=== PATIENT | male | born 1965 ===

== ENCOUNTER 2018-02-02 08:58 | Outpatient (CLI) | payer OTHER ==
[~2018-02-02 08:58] MED LIST: CIPRO500 MG PO; FLAGYL500MG PO; ULTRACET PO
== END 2018-02-02 08:59 | disposition home or self-care (01) ==
LOC: LAB 08:58
DX: I11.9 Hypertensive heart disease without heart failure (principal); E11.9 Type 2 diabetes mellitus without complications; E78.2 Mixed hyperlipidemia; E03.9 Hypothyroidism, unspecified; E55.9 Vitamin D deficiency, unspecified; E56.8 Deficiency of other vitamins; C21.0 Malignant neoplasm of anus, unspecified; R76.11 Nonspecific reaction to tuberculin skin test without active tuberculosis; Z02.79 Encounter for issue of other medical certificate

== ENCOUNTER 2018-12-30 09:14 | Outpatient (CLI) | payer OTHER | END 2018-12-30 09:20 | disposition home or self-care (01) | LOC: TOM 09:14 | DX: K59.09 Other constipation (principal); K57.32 Diverticulitis of large intestine without perforation or abscess without bleeding ==

== ENCOUNTER 2019-11-15 09:15 | Outpatient (CLI) | payer OTHER | END 2019-11-15 15:28 | disposition home or self-care (01) | LOC: LAB 09:15 | DX: I11.9 Hypertensive heart disease without heart failure (principal); E11.9 Type 2 diabetes mellitus without complications; E78.2 Mixed hyperlipidemia; E55.9 Vitamin D deficiency, unspecified; E56.8 Deficiency of other vitamins; N39.0 Urinary tract infection, site not specified; E24.2 Drug-induced Cushing's syndrome; E24.0 Pituitary-dependent Cushing's disease; C61 Malignant neoplasm of prostate; E34.8 Other specified endocrine disorders; K76.89 Other specified diseases of liver; A15.8 Other respiratory tuberculosis; C20 Malignant neoplasm of rectum; C19 Malignant neoplasm of rectosigmoid junction ==

== ENCOUNTER → 2020-12-24 | Outpatient (CLI) | payer OTHER | END | disposition home or self-care (01) | LOC: EDBD 15:19 → RAD 15:19 | PROVIDERS: ATTEND Internal Medicine Geriatric Medicine | DX: I11.9 Hypertensive heart disease without heart failure (principal) ==

== ENCOUNTER → 2020-12-25 09:18 | Outpatient (CLI) | payer OTHER | END | disposition home or self-care (01) | LOC: LAB 09:18 → EDBD 09:18 | PROVIDERS: ATTEND Internal Medicine Geriatric Medicine | DX: E03.8 Other specified hypothyroidism (principal); I11.9 Hypertensive heart disease without heart failure; E11.9 Type 2 diabetes mellitus without complications; E78.2 Mixed hyperlipidemia; E55.9 Vitamin D deficiency, unspecified; E56.8 Deficiency of other vitamins; N39.0 Urinary tract infection, site not specified; F52.21 Male erectile disorder ==

== ENCOUNTER → 2021-04-11 12:14 | Outpatient (CLI) | payer OTHER | END | disposition home or self-care (01) | LOC: LAB 12:14 | PROVIDERS: ATTEND Internal Medicine Geriatric Medicine | DX: Z20.828 Contact with and (suspected) exposure to other viral communicable diseases (principal) ==

== ENCOUNTER → 2021-07-22 | Outpatient (CLI) | payer OTHER | END | disposition home or self-care (01) | LOC: PPH VACUNA 08:00 | PROVIDERS: ATTEND Emergency Medicine Pediatric Emergency Medicine | DX: Z23 Encounter for immunization (principal) ==

== ENCOUNTER 2021-10-03 15:57 | Outpatient (CLI) | payer OTHER | END 2021-10-03 15:59 | disposition home or self-care (01) | LOC: LAB 15:57 | DX: Z03.818 Encounter for observation for suspected exposure to other biological agents ruled out (principal); Z20.828 Contact with and (suspected) exposure to other viral communicable diseases ==

== ENCOUNTER 2021-10-04 10:10 | Outpatient (CLI) | payer OTHER | END 2021-10-04 10:15 | disposition home or self-care (01) | LOC: LAB 10:10 | PROVIDERS: ATTEND Internal Medicine Geriatric Medicine | DX: E03.8 Other specified hypothyroidism (principal); I11.9 Hypertensive heart disease without heart failure; E11.9 Type 2 diabetes mellitus without complications; C61 Malignant neoplasm of prostate; R97.20 Elevated prostate specific antigen [PSA] ==

== ENCOUNTER 2022-01-12 07:54 | Outpatient (CLI) | payer OTHER | END 2022-01-12 09:15 | disposition home or self-care (01) | LOC: LAB 07:54 | PROVIDERS: ATTEND Internal Medicine Hematology & Oncology | DX: D50.8 Other iron deficiency anemias (principal); I10 Essential (primary) hypertension; N39.0 Urinary tract infection, site not specified; E03.8 Other specified hypothyroidism; E11.9 Type 2 diabetes mellitus without complications; E78.2 Mixed hyperlipidemia; E55.9 Vitamin D deficiency, unspecified; A15.9 Respiratory tuberculosis unspecified; A64 Unspecified sexually transmitted disease; A53.9 Syphilis, unspecified; M32.9 Systemic lupus erythematosus, unspecified ==

== ENCOUNTER 2022-01-13 09:53 | Outpatient (CLI) | payer OTHER | END 2022-01-13 09:55 | disposition home or self-care (01) | LOC: RAD 09:53 | PROVIDERS: ATTEND Internal Medicine Hematology & Oncology | DX: Z11.1 Encounter for screening for respiratory tuberculosis (principal); Z20.1 Contact with and (suspected) exposure to tuberculosis ==

== ENCOUNTER 2022-09-16 10:35 | Outpatient (CLI) | payer OTHER | END 2022-09-16 10:45 | disposition home or self-care (01) | LOC: PPH VACUNA 10:35 | PROVIDERS: ATTEND Emergency Medicine Pediatric Emergency Medicine | DX: Z23 Encounter for immunization (principal) ==

== ENCOUNTER 2023-02-01 12:00 | Outpatient (CLI) | payer OTHER | END 2023-02-01 12:01 | disposition home or self-care (01) | LOC: LAB 12:00 | PROVIDERS: ATTEND Internal Medicine Endocrinology, Diabetes & Metabolism | DX: Z11.1 Encounter for screening for respiratory tuberculosis (principal); R21 Rash and other nonspecific skin eruption; C61 Malignant neoplasm of prostate; E55.9 Vitamin D deficiency, unspecified; E29.1 Testicular hypofunction; E03.9 Hypothyroidism, unspecified; E78.2 Mixed hyperlipidemia; E11.65 Type 2 diabetes mellitus with hyperglycemia ==

== ENCOUNTER 2025-02-20 12:19 | Outpatient (CLI) | payer OTHER | END 2025-02-20 12:23 | disposition home or self-care (01) | LOC: RAD 12:19 | PROVIDERS: ATTEND Surgery | DX: I10 Essential (primary) hypertension (principal) ==